=== PATIENT | female | born 1940 | race Caucasian/White ===

== ENCOUNTER → 2020-06-20 10:25 | Outpatient (CLI) | payer MEDICARE, OTHER ==
[2015-07-25 14:10] VITALS: BMI 33.2
[~2020-06-20 10:25] MED LIST: ATROVENT 0.02%2.5 ML INH; CYMBALTA60 MG PO; DEXILANT60 MG PO; EVOXAC30 MG PO; EXELON1 PATCH .1 TRANSDERM; GLUCOSAMINE HC500 MG PO; HYDROCODONE-APA1 TAB PO; LIPITOR10 MG PO; NAMENDA XR7 MG PO; PROBIOTIC1 EAC1 PO; SYNTHROID50 MCG PO; XANAX0.5 MG PO
== END | disposition home or self-care (01) ==
LOC: D.CT 10:25
PROVIDERS: ATTEND Orthopaedic Surgery
DX: M48.56XA Collapsed vertebra, not elsewhere classified, lumbar region, initial encounter for fracture (principal)

== ENCOUNTER → 2021-02-06 10:09 | Outpatient (CLI) | payer MEDICARE, OTHER ==
[2015-07-25 14:10] VITALS: BMI 33.2
== END | disposition home or self-care (01) ==
LOC: D.NM 01-09 08:15
PROVIDERS: ATTEND Clinical Nurse Specialist Family Health
DX: Z96.642 Presence of left artificial hip joint (principal)